=== PATIENT | female | born 2000 | race Asian ===

== ENCOUNTER 2023-05-09 20:21 | Outpatient (CLI) | payer BC, SELFPAY | END 2023-05-09 20:22 | disposition home or self-care (01) | PROVIDERS: Visit Provider Family Medicine | DX: R07.89 Other chest pain (principal) | CPT/HCPCS: A0425; A0427 ==

== ENCOUNTER 2023-05-09 20:50 | Emergency (ER) | payer BC, SELFPAY ==
[2023-05-09 20:58] VITALS: BP 120/71; PULSE 73; RESP 20; TEMP 36.7; O2SAT 99; BMI 21.0
--- NOTE | 2023-05-09 21:01 | ED.GENADULT ---
HPI - General Adult General Time Seen by Provider: 21:01 Date Seen: 05/09/23 Chief complaint: Anxiety Stated complaint: chest pain Time Seen by Provider: 05/09/23 21:01 Source: patient, EMS and old records reviewed Mode of arrival: EMS Limitations: no limitations History of Present Illness HPI narrative: Fely is a very pleasant biological female preferring they them pronouns who comes to the emergency room for evaluation regarding chest pain. Patient notes that this morning she did not feel well and had some nausea, loose stools and a very tiny emesis. Fely attributed this to the fact that she will be getting her period tomorrow. Patient is not currently on control but is sexually active and uses condoms. Had initially had what was described as a ?twitch? in the right upper quadrant that spread to the mid chest and into the shoulders right greater than left. Notes that the pain then radiated into the right neck. In the past has experienced anxiety but has never had chest pain quite this intense. At this time does state that they are feeling better. Patient had complained of some mild shortness of breath to nursing staff but at this time no cough congestion or shortness of breath. No fevers or chills. Does endorse abdominal bloating but again attributes this to premenstrual No recent history of illness but many contacts with respiratory illnesses at [place] currently. No history of gallbladder issues in patient or her family. Has had at least 3 loose stools today. Sometimes with relief of belly pain and sometimes without. Related Data Home Medications Medication Instructions Recorded Confirmed bupropion HCl 150 mg tablet,12 hr 150 mg PO QAM 01/19/23 05/09/23 sustained-release (Wellbutrin SR) citalopram 40 mg tablet 40 mg PO DAILY 01/19/23 05/09/23 prazosin 2 mg capsule 2 mg PO HS 01/19/23 05/09/23 spironolactone 25 mg tablet 25 mg PO DAILY 05/09/23 05/09/23 Allergies Allergy/AdvReac Type Severity Reaction Status Date / Time No Known Drug Allergies Allergy Verified 05/09/23 21:01 Review of Systems Status of ROS: Reports: 10 or more systems reviewed and unremarkable except as noted in History and below Const: Reports: fatigue; Denies: fever or chills Eyes: Denies: change in vision ENMT: Denies: throat pain or neck pain Cardio: Reports: chest pain; Denies: swelling of feet/ankles, lightheadedness or shortness of breath with exertion Resp: Denies: shortness of breath, cough or wheezing : Denies: painful urination or urinary frequency Musculo: Denies: back pain, neck pain or extremity pain Integ/Breast: Denies: rash Neuro: Denies: headache or numbness in extremities Psych: Reports: anxiety Endo: Reports: fatigue Allergy/Immuno: Denies: wheezing PFSH PFSH Surgical History History of placement of ear tubes ?Z96.22 - Myringotomy tube(s) status (ICD-10) Family History Mother Colon cancer Stroke Psychiatric illness Grandfather Psychiatric illness Grandmother Psychiatric illness Social History Narrative: [employer] student. Non smoker, rare alcohol use, no illicit drug use Smoking Status: Never smoker Second hand tobacco smoke exposure: No How often do you have a drink containing alcohol: never How often do you have six or more drinks on one occasion: Never AUDIT-C Alcohol total score: 0 Non-prescribed substance use: marijuana (any form) Exam Narrative: Exam Narrative: Patient is alert and oriented. Very pleasant. No acute distress. Very well-spoken EOM is full. Face symmetrical. Mentation normal. Heart with a regular rate and rhythm without additional murmurs are heart sounds. Lungs clear bilaterally. Positive for some mild abdominal tenderness rather diffuse but seems to be more localized right upper quadrant. There is no increased bowel sounds. Lower extremities without edema. Moving all extremities. No guarding in movement. Const: Vital Signs, click to edit/add: Vital Signs - 24 hr 05/09/23 20:58 05/09/23 21:28 Temperature 98.1 F Pulse Rate [Right Pulse Oximeter] 73 Respiratory Rate 20 Blood Pressure [Ri ght Upper Arm] 120/71 Pulse Oximetry 99 99 Oxygen Delivery Me thod Room Air Documenting provider has reviewed patient's vital signs: yes Course Course ED Course: At this time differential diagnosis includes but is not limited to acute coronary event, esophageal spasm, reflux, biliary colic, viral gastroenteritis, other virus associated with GI affect, urinary tract infection. Will place IV give 1 L of normal saline as well as Zofran 4 mg. Lab check will be troponin, CBC, comprehensive panel, urinalysis, hCG. I have low suspicion of cardiac disease but will check EKG and troponin at this time. Vital Signs Vital signs: Initial Vital Signs Temperature 98.1 F 05/09/23 20:58 Temperature Source Temporal Artery Scan 05/09/23 20:58 Pulse Rate 73 05/09/23 20:58 Pulse Rhythm Regular 05/09/23 20:58 Pulse Strength 3+ Normal 05/09/23 20:58 Respiratory Rate 20 05/09/23 20:58 Blood Pressure 120/71 05/09/23 20:58 Blood Pressure Mean 87 05/09/23 20:58 Blood Pressure Position Sitting 05/09/23 20:58 Pulse Oximetry 99 05/09/23 20:58 Oxygen Delivery Method Room Air 05/09/23 20:58 Vital Signs Temperature 98.1 F 05/09/23 20:58 Pulse Rate 73 05/09/23 20:58 Respiratory Rate 20 05/09/23 20:58 Blood Pressure 120/71 05/09/23 20:58 Pulse Oximetry 99 05/09/23 20:58 Oxygen Delivery Method Room Air 05/09/23 20:58 Temperature 98.1 F 05/09/23 20:58 Pulse Rate 73 05/09/23 20:58 Respiratory Rate 20 05/09/23 20:58 Blood Pressure 120/71 05/09/23 20:58 Pulse Oximetry 99 05/09/23 21:28 Oxygen Delivery Method Room Air 05/09/23 20:58 Medications Administered Medications: Generic Name Dose Route Start Last Admin Trade Name Freq PRN Reason Stop Dose Admin Calcium Carbonate 500 mg 05/09/23 22:06 05/09/23 22:52 Calcium Carbonate 500 Mg Chew PO 05/09/23 22:07 500 mg ONCE ONE Administration Sodium Chloride 1,000 mls @ 1,000 mls/hr 05/09/23 21:14 05/09/23 22:07 0.9 % Sodium Chloride 1000 Ml IV 05/09/23 22:13 Infused .Q1H VIPUL Infusion Ondansetron HCl 4 mg 05/09/23 21:12 05/09/23 21:27 Ondansetron 2 Mg/Ml Inj IVP 05/09/23 21:13 4 mg ONCE ONE Administration Medical Decision Making MDM Narrative Medical decision making narrative: 1. Atypical chest pain-I think this is likely reflux and part of the illness that Fely is experiencing. With her mild nausea, slightly depressed white count, increased loose stools and rather diffuse stomach discomfort I do think that this is the virus. She has tested negative for COVID and influenza. Labs are reassuring. She has had 2 negative troponins and her EKG did not show any acute ST or T-wave changes. She was given Tums here in the ER as well as Zofran and 1 L of fluid. I would expect that her nausea will improve over the next 18 hours but she may experience loose stools over the next few days. 2. Disposition-home at this time. Significant other present seems very loving and supportive. Recommend returning to the ER for worsening symptoms. I did explain that usually we would do chest x-ray with somebody experiencing chest pain but given her age, reassuring auscultatory evaluation, normal EKG I elected not to have her undergo any excess radiation. Medical Records Medical records reviewed: Yes I reviewed the patient's medical records Lab Data Lab results reviewed: Yes I reviewed the patient's lab results Labs: Lab Results 05/09/23 05/09/23 05/09/23 Range/Units 21:12 21:20 21:30 WBC 3.97 L (4.50-11.00) K/uL RBC 4.04 (4.00-5.20) m/uL Hgb 13.0 (12.0-16.0) gm/dL Hct 37.1 (33.0-51.0) % MCV 92 (80-100) fL MCH 32 (26-34) pg MCHC 35 (32-36) gm/dL RDW Coeff of Sandy 11.7 (11.5-15.5) % Plt Count 193 (140-440) K/uL Neut % (Auto) 46.7 (42.0-72.0) % Lymph % (Auto) 37.5 (20-44) % Tillman % (Auto) 12.8 H (0.0-11.0) % Eos % (Auto) 2.5 (0.0-7.0) % Baso % (Auto) 0.5 (0.0-3.0) % Neut # (Auto) 1.90 (1.7-7.0) K/uL Lymph # (Auto) 1.50 (0.90-2.90) K/uL Tillman # (Auto) 0.50 (0.00-0.90) K/UL Eos # (Auto) 0.10 (0.00-0.50) K/uL Baso # (Auto) 0.00 (0.00-0.30) K/uL Abs Immat Gran (auto) 0.00 (0.00-0.30) K/uL Imm/Tot Granulo (auto) 0.0 % Sodium 138 (135-149) mmol/L Potassium 3.7 (3.6-5.1) mmol/L Chloride 105 (96-114) mmol/L Carbon Dioxide 24 (20-32) mmol/L Anion Gap 9 (7-15) mEq/L BUN 14 (5-24) mg/dL Creatinine 0.7 (0.5-1.5) mg/dL Estimated Creat Clear 119.34 Estimated GFR 127 ml/min Glucose 90 (60-115) mg/dL Calcium 9.7 (8.4-10.6) mg/dL Magnesium 2.0 (1.5-2.6) mg/dL Total Bilirubin 0.4 (0.1-1.5) mg/dL AST 29 (12-35) U/L ALT 16 (4-35) U/L Alkaline Phosphatase 44 (40-150) U/L Total Protein 8.5 H (6.0-8.3) g/dL Albumin 4.6 (3.3-5.0) g/dL HCG, Qual Negative (Negative) Urine Color Yellow (Yellow) Urine Appearance Clear (Clear) Urine pH 8.5 (5.0-8.5) Ur Specific [place] 1.015 (1.000-1.030) Urine Protein Negative (Negative) Urine Glucose (UA) Negative (Negative) Urine Ketones Negative (Negative) Urine Blood Negative (Negative) Urine Nitrite Negative (Negative) Urine Bilirubin Negative (Negative) Urine Urobilinogen 0.2 (0.2-1.0) Ur Leukocyte Esterase Negative (Negative) Urine RBC 0-2 (0-2) Urine WBC 0-2 (0-5) Ur Squamous Epith Cells None (None-Few) Urine Bacteria None (None) SARS-CoV-2 (PCR) Negative SARS-CoV-2 (Negative) Influenza Type A (PCR) Negative PCR FLU A (Negative) Influenza Type B (PCR) Negative PCR FLU B (Negative) RSV (PCR) Negative PCR RSV (Negative) POC Troponin I 0.00 L (0.01-0.04) ng/ml 05/09/23 Range/Units 22:45 WBC (4.50-11.00) K/uL RBC (4.00-5.20) m/uL Hgb (12.0-16.0) gm/dL Hct (33.0-51.0) % MCV (80-100) fL MCH (26-34) pg MCHC (32-36) gm/dL RDW Coeff of Sandy (11.5-15.5) % Plt Count (140-440) K/uL Neut % (Auto) (42.0-72.0) % Lymph % (Auto) (20-44) % Tillman % (Auto) (0.0-11.0) % Eos % (Auto) (0.0-7.0) % Baso % (Auto) (0.0-3.0) % Neut # (Auto) (1.7-7.0) K/uL Lymph # (Auto) (0.90-2.90) K/uL Tillman # (Auto) (0.00-0.90) K/UL Eos # (Auto) (0.00-0.50) K/uL Baso # (Auto) (0.00-0.30) K/uL Abs Immat Gran (auto) (0.00-0.30) K/uL Imm/Tot Granulo (auto) % Sodium (135-149) mmol/L Potassium (3.6-5.1) mmol/L Chloride (96-114) mmol/L Carbon Dioxide (20-32) mmol/L Anion Gap (7-15) mEq/L BUN (5-24) mg/dL Creatinine (0.5-1.5) mg/dL Estimated Creat Clear Estimated GFR ml/min Glucose (60-115) mg/dL Calcium (8.4-10.6) mg/dL Magnesium (1.5-2.6) mg/dL Total Bilirubin (0.1-1.5) mg/dL AST (12-35) U/L ALT (4-35) U/L Alkaline Phosphatase (40-150) U/L Total Protein (6.0-8.3) g/dL Albumin (3.3-5.0) g/dL HCG, Qual (Negative) Urine Color (Yellow) Urine Appearance (Clear) Urine pH (5.0-8.5) Ur Specific [place] (1.000-1.030) Urine Protein (Negative) Urine Glucose (UA) (Negative) Urine Ketones (Negative) Urine Blood (Negative) Urine Nitrite (Negative) Urine Bilirubin (Negative) Urine Urobilinogen (0.2-1.0) Ur Leukocyte Esterase (Negative) Urine RBC (0-2) Urine WBC (0-5) Ur Squamous Epith Cells (None-Few) Urine Bacteria (None) SARS-CoV-2 (PCR) (Negative) Influenza Type A (PCR) (Negative) Influenza Type B (PCR) (Negative) RSV (PCR) (Negative) POC Troponin I 0.00 L (0.01-0.04) ng/ml ECG Data Attestation: I personally reviewed and interpreted this ECG as follows: Interpretation: EKG by my read shows sinus rhythm at a rate of 60. No acute ST or T-wave changes. Normal MO and QT intervals. Discharge Plan Discharge Clinical Impression: Loose stools, Atypical chest pain Patient Disposition: Home, Self-Care Condition: Improved Additional Instructions: At this time labs are reassuring. Your white count is mildly depressed which leads me to believe in combination with the mild nausea, loose stools that you are experiencing a viral illness. You have tested negative for COVID influenza as well as RSV. Please push fluids, you may use Tylenol or ibuprofen as needed for discomfort, Tums or Maalox as needed for any stomach upset. Know that these medications may turn your stools a technical solutions engineer color. Return to the emergency room for worsening symptoms and as needed. Prescriptions: No Action citalopram 40 mg tablet 40 mg PO DAILY prazosin 2 mg capsule 2 mg PO HS bupropion HCl [Wellbutrin SR] 150 mg tablet sustained-release 12 hr 150 mg PO QAM spironolactone 25 mg tablet 25 mg PO DAILY Follow Up/Referrals: Provider,Not a Local [Primary Care Provider] - Stand Alone Forms: [facility] Info Instructions
[2023-05-09] MEDS: 0.9 % SODIUM CHLORIDE 1000 ml 1,000 ML IV (21:27)
[2023-05-09] MEDS: ONDANSETRON 2 MG/ML inj 4 MG IVP (21:27)
[2023-05-09 21:28] VITALS: O2SAT 99
[2023-05-09 21:37] LABS: Basophils Percent Auto 0.5 % (0.0-3.0); Eosinophils Percent Auto 2.5 % (0.0-7.0); Hematocrit 37.1 % (33.0-51.0); Lymphocytes Percent Auto 37.5 % (20-44); Mean Corpuscular HGB Conc 35 gm/dL (32-36); Mean Corpuscular Hemoglobin 32 pg (26-34); Mean Corpuscular Volume 92 fL (80-100); Monocytes Percent Auto 12.8 % (0.0-11.0); Neutrophils Percent Auto 46.7 % (42.0-72.0); Platelet Count* 193 K/uL (140-440); RDW Coefficient of Variation % 11.7 % (11.5-15.5); Red Blood Count 4.04 m/uL (4.00-5.20); White Blood Count* 3.97 K/uL (4.50-11.00)
[2023-05-09 21:38] LABS: Slide Review Reflex No
[2023-05-09 21:51] LABS: Appearance Urine Clear (Clear); Bilirubin Urine Negative (Negative); Blood Urine Negative (Negative); Color Urine Yellow (Yellow); Glucose Urine Negative (Negative); Ketones Urine Negative (Negative); Leukocyte Esterase Urine Negative (Negative); Nitrite Urine Negative (Negative); Protein Urine Negative (Negative); Specific Gravity Urine 1.015 (1.000-1.030); Urobilinogen Urine 0.2 (0.2-1.0); pH Urine 8.5 (5.0-8.5)
[2023-05-09 21:51] LABS: Albumin* 4.6 g/dL (3.3-5.0); Chloride* 105 mmol/L (96-114); Potassium* 3.7 mmol/L (3.6-5.1); Sodium* 138 mmol/L (135-149)
[2023-05-09 21:53] LABS: Creatinine* 0.7 mg/dL (0.5-1.5); Est. Creatinine Clearance* 119.34; Estimated Glomerular Filt Rate 127 ml/min
[2023-05-09 21:54] LABS: Alanine Aminotransferase* 16 U/L (4-35); Alkaline Phosphatase* 44 U/L (40-150); Anion Gap 9 mEq/L (7-15); Aspartate Amino Transferase* 29 U/L (12-35); Bilirubin Total* 0.4 mg/dL (0.1-1.5); Blood Urea Nitrogen* 14 mg/dL (5-24); Calcium* 9.7 mg/dL (8.4-10.6); Carbon Dioxide* 24 mmol/L (20-32); Glucose* 90 mg/dL (60-115); Total Protein* 8.5 g/dL (6.0-8.3)
[2023-05-09 21:55] LABS: HCG Qualitative Serum* Negative (Negative)
[2023-05-09 21:58] LABS: RBC Urine 0-2 (0-2); WBC Urine 0-2 (0-5)
[2023-05-09 22:14] LABS: PCR FLU A Negative PCR FLU A (Negative); PCR FLU B Negative PCR FLU B (Negative); PCR RSV Negative PCR RSV (Negative); SARS PCR* Negative SARS-CoV-2 (Negative)
[2023-05-09] MEDS: CALCIUM CARBONATE 500 MG CHEW PO (22:52)
[2023-05-09 23:13] VITALS: BP 105/74; PULSE 79; RESP 20; TEMP 36.7; O2SAT 99
[2023-05-09 23:15] VITALS: BP 105/74; PULSE 79; RESP 20; TEMP 36.7
== END 2023-05-09 23:16 | disposition home or self-care (01) ==
PROVIDERS: Emergency Provider Family Medicine
DX: R07.9 Chest pain, unspecified (principal)
CPT/HCPCS: 36415; 80053; 81001; 83735; 84484; 84703; 85025; 87631; 93005; 94761; 96374; 99284; A9270; J2405; J7030

== ENCOUNTER 2024-04-14 16:59 | Outpatient (CLI) | payer BC, SELFPAY ==
--- NOTE | 2024-04-14 17:30 | CRLHL7_ITS ---
For Patients: As a result of the Century Cures Act, medical imaging exams and procedure reports are released immediately into your electronic medical record. You may view this report before your referring provider. If you have questions, please contact your health care provider. Indication: Concerns for papilledema Technique: Noncontrast sagittal T1, axial FLAIR, T2, diffusion, post contrast T1 weighted sequences are provided. Supplemental high resolution axial/coronal STIR and T1 fat suppressed images through the orbits are provided after administration of 12 cc Dotarem. Comparison: No prior studies available for comparison at this institution. Findings: MRI brain: The ventricles, sulci and gyri are normal size, shape and contour for age. The midline structures are centrally located with no evidence of shift. There are no suspicious intra or extra-axial fluid collections. No region of restricted diffusion or suspicious regions of abnormal parenchymal enhancement. Expected flow voids in the cavernous carotids and basilar artery. The pituitary gland, optic chiasm, pineal gland, and cerebellar tonsils are unremarkable. MRI orbits: The globes bilaterally are within normal limits. No suspicious abnormal signal within the visualized optic nerves. Infundibulum and optic chiasm are midline and within normal limits. No convincing evidence of suspicious masses within the intraconal space. Impression: 1. No acute intracranial abnormality. 2. Unremarkable MRI of the brain and orbits. 3. No pathologic enhancement. Dictated by Chago Brar MD @ 04/15/2024 9:32:18 AM (Electronically Signed)
== END 2024-04-14 17:00 | disposition home or self-care (01) ==
PROVIDERS: Visit Provider Pediatrics
DX: H47.10 Unspecified papilledema (principal)
CPT/HCPCS: 70543; A9575

== ENCOUNTER 2025-03-10 08:35 | Outpatient (CLI) | payer BC, SELFPAY | END 2025-03-10 08:36 | disposition home or self-care (01) | PROVIDERS: PCP Family Medicine; Visit Provider Family Medicine | DX: F41.9 Anxiety disorder, unspecified (principal); R10.9 Unspecified abdominal pain; K59.09 Other constipation; Z11.3 Encounter for screening for infections with a predominantly sexual mode of transmission | CPT/HCPCS: 80053; 80061; 82607; 84443; 87491; 87591 ==